=== PATIENT | female | born 1995 | race Caucasian/White ===

== ENCOUNTER 2021-03-14 22:29 | Inpatient (IN) | payer OTHER ==
[~2021-03-14] VITALS: Ht 165.1 cm; Wt 72.6 kg
[~2021-03-14 22:29] MED LIST: COLACE 100MG C100 MG PO; FEOSOL325 MG PO; IBUPROFEN600 MG PO; PRENATAL VITAM1 EAC3 PO
[2021-03-14 23:09] LABS: HEMOGLOBIN 16.8 gm/dl (12.3-15.3); RED BLOOD COUNT 5.3 M/UL (4.00-5.10); WHITE BLOOD COUNT 9.8 K/UL (4.5-11.0)
[2021-03-14 23:37] LABS: BUN/CREATININE RATIO 16 (0-10)
[2021-03-15] MEDS ORDERED: ZOFRAN ODT 4 MG4 MG PO (10:43)
[2021-03-16 12:44] LABS: HEMOGLOBIN 12.8 gm/dl (12.3-15.3); RED BLOOD COUNT 4.06 M/UL (4.00-5.10); WHITE BLOOD COUNT 5.7 K/UL (4.5-11.0)
[2021-03-16 13:10] LABS: BUN/CREATININE RATIO 9 (0-10)
== END 2021-03-16 17:15 | disposition home or self-care (01) | DRG 392 ==
LOC: ER1 22:29 → CDU 03-15 05:04 → MED SURG 4 03-15 16:27
PROVIDERS: Internal Medicine; Physician Assistant Medical; ADMIT Internal Medicine
DX: K52.9 Noninfective gastroenteritis and colitis, unspecified (principal); E87.6 Hypokalemia; E86.0 Dehydration; Z20.822 Contact with and (suspected) exposure to COVID-19; F17.210 Nicotine dependence, cigarettes, uncomplicated; N20.0 Calculus of kidney; Z91.048 Other nonmedicinal substance allergy status
CPT/HCPCS: 36415; 80048; 80053; 80307; 81001; 82550; 82553; 83690; 83735; 84132; 84484; 84703; 85025; 96365; 96367; 96375; 99285; C9113; J1650; J1956; J2270; J2405; J3480; J7120; Q9967; U0002

== ENCOUNTER 2021-08-16 20:10 | Emergency (ER) | payer OTHER ==
[~2021-08-16 20:10] MED LIST changes: +ZOFRAN ODT 4 MG4 MG PO
[2021-08-16 20:49] LABS: HEMOGLOBIN 13.1 gm/dl (12.3-15.3); RED BLOOD COUNT 4.2 M/UL (4.00-5.10); WHITE BLOOD COUNT 9.2 K/UL (4.5-11.0)
[2021-08-16 21:19] LABS: BUN/CREATININE RATIO 18 (0-10)
[2021-08-16] MEDS ORDERED: OMNICEF 300 MG300 MG PO (23:26)
[2021-08-16] MEDS ORDERED: ZOFRAN ODT 4 MG4 MG PO (23:26)
[2021-08-16] MEDS ORDERED: LODINE CAP 300300 MG PO (23:26)
== END 2021-08-16 23:40 | disposition home or self-care (01) ==
LOC: ER1 20:10
PROVIDERS: Emergency Medicine
DX: N20.0 Calculus of kidney (principal); Z87.442 Personal history of urinary calculi; F17.210 Nicotine dependence, cigarettes, uncomplicated; Z88.0 Allergy status to penicillin
CPT/HCPCS: 80053; 81001; 84703; 85025; 87086; 99284; J1885; J2405

== ENCOUNTER 2021-10-21 10:10 | Emergency (ER) | payer OTHER ==
[~2021-10-21 10:10] MED LIST changes: +LODINE CAP 300300 MG PO; +OMNICEF 300 MG300 MG PO
== END 2021-10-21 11:10 | disposition home or self-care (01) ==
LOC: ER1 10:10
DX: R50.9 Fever, unspecified (principal); R11.0 Nausea; Z20.822 Contact with and (suspected) exposure to COVID-19; F17.210 Nicotine dependence, cigarettes, uncomplicated; Z88.0 Allergy status to penicillin
CPT/HCPCS: 99283

== ENCOUNTER 2022-01-25 21:21 | Emergency (ER) | payer OTHER ==
[2022-01-25 22:32] LABS: HEMOGLOBIN 16.1 gm/dl (12.3-15.3); RED BLOOD COUNT 5.13 M/UL (4.00-5.10); WHITE BLOOD COUNT 11.1 K/UL (4.5-11.0)
[2022-01-25 23:01] LABS: BUN/CREATININE RATIO 13 (0-10)
== END 2022-01-26 12:06 | disposition other institution (70) ==
LOC: ER1 21:21
PROVIDERS: Family Medicine
DX: R56.9 Unspecified convulsions (principal); R45.851 Suicidal ideations; F10.129 Alcohol abuse with intoxication, unspecified; Y90.5 Blood alcohol level of 100-119 mg/100 ml; Z20.822 Contact with and (suspected) exposure to COVID-19
CPT/HCPCS: 80053; 80307; 81001; 83735; 84702; 85025; 93005; 99285; G0480; U0002